=== PATIENT | female | born 1980 | race Caucasian/White ===

== ENCOUNTER 2020-09-14 13:26 | Outpatient (CLI) | payer OTHER, SELFPAY ==
--- NOTE | 2020-09-14 13:30 | ECG_ITS ---
Measurements Intervals [place] Rate: 68 P: 54 [place]: 158 QRS: 24 QRSD: 90 T: 14 QT: 393 QTc: 421 Interpretive Statements SINUS RHYTHM WITH SINUS ARRHYTHMIA INCOMPLETE RIGHT BUNDLE BRANCH BLOCK DELAYED PRECORDIAL R/S TRANSITION BORDERLINE ECG Electronically Signed On 09-14-2020 13:53:59 CDT by Vahe Waterman D.O.
[2020-09-14 14:32] LABS: Anion Gap 6 mmol/L (8-16); Blood Urea Nitrogen 17 mg/dL (7-17); Calcium 9.3 mg/dL (8.4-10.2); Carbon Dioxide 33 mmol/L (22-30); Chloride 102 mmol/L (98-107); Estimated Glomerular Filt Rate > 60; Glucose 100 mg/dL (65-105); Hemoglobin 14.3 g/dL (12.0-15.0); Potassium 4.2 mmol/L (3.4-5.0); Sodium 141 mmol/L (137-145)
== END 2020-09-14 13:27 | disposition home or self-care (01) ==
LOC: ANHSURGERY 13:34
PROVIDERS: Anesthesiology; PCP Internal Medicine; Visit Provider Surgery Plastic and Reconstructive Surgery
DX: F41.9 Anxiety disorder, unspecified (principal); N64.82 Hypoplasia of breast; Z98.890 Other specified postprocedural states; Z01.818 Encounter for other preprocedural examination; I45.10 Unspecified right bundle-branch block
CPT/HCPCS: 36415; 80048; 85014; 85018; 93005

== ENCOUNTER 2020-09-22 00:41 | Day surgery (SDC) | payer OTHER, SELFPAY ==
[2020-09-10 16:56] VITALS: BMI 26.2
[2020-09-22] VITALS (10 sets, daily range): BP systolic 104–129; BP diastolic 62–75; PULSE 63–80; RESP 10–20; TEMP 36.2–36.9; O2SAT 98–100
--- NOTE | 2020-09-22 06:45 | WPDHPUPDATE1 ---
History and Physical Update Update Date/Time: 09/22/20 06:45 History and Physical has been reviewed, including an updated exam of the patient. There are NO changes in the patient's condition. Risks, benefits, and alternatives have been discussed and questions answered. Patient agrees to proceed with procedure.
[2020-09-22] MEDS: LACTATED RINGERS 1,000 ML 30 ML IV CONT ×2 (06:46→11:51)
[2020-09-22 06:48] LABS: Urine Cotinine NEGATIVE
--- NOTE | 2020-09-22 07:06 | PM.PROC ---
Procedure Note - Detailed Date of procedure: 09/22/20 Pre-op diagnosis: Micromastia, Breast Ptosis, Skin Laxity Post-op diagnosis: same Procedure performed: 1. Augmentation mastopexy 2. Progressive tension abdominoplasty Description of procedure: She is here today for bilateral breast augmentation mastopexy and abdominoplasty. Previously and again today the risks, benefits, alternatives were discussed in extensive detail. I wanted her to be very realistic about the risks involved as well as expectations. We discussed aftercare and what to monitor for. She had previously stated that she wants a natural somewhat ptotic breast however I explained that she is doing mastopexy with implants and she will have upper pole fullness. She also states she does want upper pole fullness. Again we spent extensive time discussing realistic expectations making sure she is aware of what we can and cannot accomplish. I was very up front honest about this making sure she was well informed. e discussed DVT/PE risks and management. Made sure answered all of her questions to her satisfaction today and consent was obtained. Marked in the preoperative holding area with their verification. The patient was taken to the operating room placed supine on the operating table. Anesthesia was provided by anesthesiology. A jones catheter was started. She was prepped and draped in a standard sterile fashion. A surgical time-out was taken. A surgical time-out was taken. We cleansed the skin and 1% lidocaine and 0.25% Marcaine with epinephrine was used anesthetize as a field block. She was prepped and draped in a standard sterile fashion. Tegaderm nipple Gan were placed. A 15 blade used to make an incision above the IMF. Dissection was continued until the chest wall as identified. The lower tissue was elevated until just above the IMF. I incised the pectoralis major along its inferior border and completely released the inferior border leaving the medial border intact. I created a subpectoral pocket in the appropriate dimensions based on our preoperative planning for the implant. I then copiously irrigated with saline solution and verified a strict hemostasis. Next the use a triple antibiotic and Betadine containing solution to irrigate the pocket. I washed my gloves with the triple antibiotic and Betadine solution. We washed the implant immediately upon opening it with this solution and only opened it when we needed it. I used implant funnel and no-touch technique. The implant was introduced into the pocket using the funnel. Having verified positioning of the implant this was closed using 2-0 Vicryl. I tailor tacked the breast into position. Placed him in a sitting position. Verified my markings based on preoperative markings, intraoperative observations and measurements which were in full agreement. Placed supine. I de-epithelialized a superior pedicle. I also de-epithelialized an inferior flap to provide coverage at the T junction. I then resected a small volume of the inferior and central keel in order to get good symmetry. Elevated medial and lateral tissue flaps which were thickened well-vascularized. I copiously irrigated with saline solution. I then irrigated with a triple antibiotic Betadine solution. Closed using 2-0 Vicryl along the pillars and IMF. This is followed by 3-0 Monocryl around the nipple areola and along the vertical. 3-0 strata fix along the IMF. Final closure was running subcuticular 4-0 Monocryl and tissue glue. I placed the patient in a flexed position to verify the upper and lower markings would reach. I then placed her supine. A thorough abdominal examination was completed. Stab incisions were made and used tumescent solution. A 10 blade was used to make the upper incision. I continued dissection down to the level of fascia. Elevated just what was necessary for repair of the diastasis and discontinuous undermining otherwise. I then again f
--- NOTE | 2020-09-22 07:09 | WPDANESEPPF ---
Anes - Initial Pre Proc Eval Procedure: Operation Date: 09/22/20 07:30 Proposed Procedures p Bilateral Breast Augmentation - Maximilian Perkins MD s Bilateral Breast Mastopexy - Maximilian Perkins MD s Abdominoplasty - Maximilian Perkins MD Date/Time: 09/22/20 07:09 Surgeon: Maximilian Perkins MD Pre Op Diagnosis: Micromastia, Breast Ptosis, Skin Laxity Patient Data Age: 40 Gender: F Height: 5 ft 2 in Weight: 65 kg Allergies Allergy/AdvReac Type Severity Reaction Status Date / Time prochlorperazine Allergy racing Verified 06/29/20 14:35 [From Compazine] heart Home Medications Medication Instructions Recorded Confirmed Type famotidine 40 mg tablet 40 mg PO DAILY 08/07/19 09/10/20 History levothyroxine 88 mcg tablet 88 mcg PO DAILY 08/07/19 09/10/20 History sertraline 100 mg tablet 100 mg PO DAILY 08/07/19 09/10/20 History sertraline 50 mg tablet 50 mg PO DAILY 08/07/19 09/10/20 History spironolactone 25 mg tablet 25 mg PO BID 08/07/19 09/10/20 History carisoprodol 350 mg tablet 350 mg PO TID PRN #21 tablet 09/08/20 09/10/20 Rx ondansetron HCl 4 mg tablet 4 mg PO Q8H #28 tablet 09/08/20 09/10/20 Rx oxycodone-acetaminophen 5 mg-325 1 tablet PO Q6H PRN #15 tablet 09/08/20 09/10/20 Rx mg tablet Laboratory Tests 09/22/20 06:34 Cotinine Negative Patient hx anesthesia problems: post op nausea/vomiting Family hx anesthesia problems: none PMFSH Past Medical History Medical History Anxiety Hypothyroid Sleep apnea Surgical History Surgical History History of cholecystectomy History of foot operation History of nasal septoplasty History of oral surgery Family History Family History Mother Hypertension Father Hypertension Grandparent Hypertension Sibling Hypertension Social History Social History Smoking status: Never smoker Alcohol intake: unknown Substance use: never Living arrangements: with family Gender identity (if verbalized by the patient): Female Sexual Orientation (if Verbalized by the Patient): Straight or Heterosexual Spiritual care concerns: No Anes - Eval Final PreProcedure Day of Procedure 09/22/20 07:09 Patient weight: normal Heart: regular rate and rhythm Lungs: clear to auscultation Airway: Mallampati scale class II Neurological: alert and oriented Last oral intake: >/= 8 hours ASA classification: II Emergent: no Anesthetic plan: proceed Anesthesia type and monitoring: general ETT and standard monitoring Informed Consent: The patient's anesthetic plan and its attendant risks and benefits were discussed with the patient/family/POA. Questions were solicited and answers provided to the satisfaction of the patient/family/POA.
[2020-09-22] MEDS: SCOPOLAMINE 1.5 MG PATCH TRANSDERM (07:23)
[2020-09-22] MEDS: ceFAZolin 2 GM/D5W 50 ML 2 GM/50 ML BAG IVPB (07:27)
[2020-09-22] MEDS: LIDO 1%/EPINEPHRINE 1:100,000 50 ML VIAL 30 ML INFILTRATE (08:11)
--- NOTE | 2020-09-22 12:31 | SUR.PHASEI ---
1205; PT BEEBE WAS DC'D IN OR. CALLED DR AVILA, IF PT IS STILL SLEEPING, REPLACE BEEBE. IF AWAKE, THEN DO NOT. PT SHOULD HAVE BEEBE UNTIL THIS EVENING. [address] BEEBE, PT HAS SOME SWELLING TO LABIA/GENITAL AREA. USING STERILE TECHNIQUE. UNABLE TO PLACE BEEBE. 1220; PT STARTING TO AROUSE NOW. HOB REMAINS ELEVATED AND KNEES IN FLEXED POSITION.
[2020-09-22] MEDS: fentaNYL CITRATE INJ (*CRX) 100 MCG/2 ML VIAL 25 MCG IV PUSH ×4 (12:40→13:00)
--- NOTE | 2020-09-22 12:51 | SUR.PHASEI ---
1245; SPOKE TO JEROME HISTORICAL RECORDS ADMINISTRATOR, DR AVILA IS SCRUBBED IN. NOTIFIED THAT [address] BEEBE DUE TO PT HAVING SOME MILD SWELLING. JEROME THORNE STATES SHE WILL TELL DR AVILA 1246; JEROME THORNE CALLED, DR AVILA STATES MAY LEAVE BEEBE OUT.
--- NOTE | 2020-09-22 12:56 | SUR.PHASEI ---
PT SLEEPING. RESP EVEN UNLABORED. HOB REMAINS ELEVATED AND KNEES IN FLEXED POSITION WITH PILLOW UNDER NEATH THEM
--- NOTE | 2020-09-22 13:01 | SUR.PHASEI ---
PT STATES ONLLY HER BREASTS HURT, ABDOMEN NO PAIN.
[2020-09-22] MEDS: LACTATED RINGERS 1,000 ML 125 ML IV CONT (13:38)
--- NOTE | 2020-09-22 14:10 | OBPPTRN ---
[id number] Patient transferred to post room #289 via bed. Oriented to unit, room, information board. Patient verbalizes understanding.
[2020-09-22] MEDS: oxyCODONE/ACETAMINOPHEN (*CRX) 5-325 MG TABLET PO ×2 (15:53→17:08)
[2020-09-22] MEDS: SPIRONOLACTONE 25 MG TABLET PO (17:08)
[2020-09-22] MEDS: carisoprodoL (*CRX) 350 MG TABLET PO (17:33)
[2020-09-22] MEDS: ENOXAPARIN 40 MG/0.4 ML SYRINGE SUB-Q (17:33)
[2020-09-22] MEDS: ONDANSETRON INJ 4 MG/2 ML VIAL IV PUSH (17:40)
[2020-09-22] MEDS: DOCUSATE SODIUM 100 MG CAPSULE PO (20:22)
[2020-09-22] MEDS: SERTRALINE HCL 50 MG TABLET PO (20:22)
[2020-09-22] MEDS: MORPHINE SULFATE (*CRX) 2 MG/ML INJ IV PUSH ×2 (20:22→22:22)
[2020-09-22] MEDS: SERTRALINE HCL 50 MG TABLET 100 MG PO (20:22)
[2020-09-23] VITALS: BP 106/64; PULSE 82; RESP 16; TEMP 37.2; O2SAT 97
[2020-09-23] MEDS: carisoprodoL (*CRX) 350 MG TABLET PO ×3 (00:01→12:11)
[2020-09-23] MEDS: MORPHINE SULFATE (*CRX) 2 MG/ML INJ IV PUSH ×4 (02:56→09:35)
[2020-09-23 03:20] VITALS: BP 100/61; PULSE 74; RESP 16; TEMP 36.7; O2SAT 97
[2020-09-23] MEDS: LEVOTHYROXINE SODIUM 88 MCG TABLET PO (05:52)
[2020-09-23] MEDS: oxyCODONE/ACETAMINOPHEN (*CRX) 5-325 MG TABLET PO ×4 (05:52→12:14)
--- NOTE | 2020-09-23 07:13 | WPDPN ---
Progress Note: A&P Assessment and Plan (1) Encounter for cosmetic surgery: Code(s): Z41.1 - Encounter for cosmetic surgery Status: Acute Assessment and Plan: She is doing very well after augmentation mastopexy and abdominoplasty. Will discharge home. Follow-up. Today we had a lengthy discussion about the care. Discussed what monitor for. Discussed what is a medical emergency and went to dial 911/proceed to the emergency room. Otherwise we are available with any questions or concerns. I will see her back. Time Spent With Patient Time with patient: 25 - 35 minutes Review of Systems Review of Systems: All systems reviewed & are unremarkable except as noted in HPI and below Exam Narrative: Exam Narrative: Bilateral breasts are healing well. No signs of infection. No hematoma. No seroma. Good color and capillary refill. Abdomen is healing well. No signs of infection. No hematoma. No seroma. Good color and capillary refill. No calf tenderness. Negative Homans. Const: General: comfortable, no acute distress, alert and awake; No acute distress Orientation/consciousness: oriented to person HENMT: Head: normal to inspection Ears: external ears normal General nose exam: Normal external nose present Face and sinus: normal facial exam Eyes: General: appearance normal, both eyes and all related structures Periorbital: periorbital findings normal Eyelids: eyelids normal Conjunctivae: conjunctivae normal Neck: Neck: normal visual inspection Chest: Chest palpation & inspection: normal inspection of the chest Resp: Effort & Inspection: normal respiratory effort and able to speak in complete sentences GI: Inspection: normal to inspection Neuro: General: oriented to person Psych: Appearance: grossly normal Mental Status: mental status grossly normal Objective Data Vital Signs Vital Signs: Vital Signs - 24 hr 09/22/20 07:46 09/22/20 11:51 09/22/20 12:05 Temperature 36.3 C L 36.2 C L Pulse Rate 66 63 64 Respiratory Rate 10 L 12 Blood Pressure 129/75 108/66 113/69 Pulse Oximetry 100 100 100 09/22/20 12:20 09/22/20 12:35 09/22/20 12:50 Temperature Pulse Rate 65 67 68 Respiratory Rate 13 14 14 Blood Pressure 123/67 124/75 118/73 Pulse Oximetry 100 99 98 09/22/20 13:05 09/22/20 13:20 09/22/20 13:25 Temperature 36.9 C Pulse Rate 66 76 72 Respiratory Rate 12 20 18 Blood Pressure 119/75 120/72 114/72 Pulse Oximetry 98 100 99 09/22/20 20:00 09/23/20 00:00 09/23/20 03:20 Temperature 36.4 C 37.2 C 36.7 C Pulse Rate 80 82 74 Respiratory Rate 16 16 16 Blood Pressure 104/62 106/64 100/61 Pulse Oximetry 99 97 97 Intake/Output Intake/Output: Intake & Output 09/20/20 09/21/20 09/22/20 09/23/20 23:59 23:59 23:59 23:59 Intake Total 3070 100 Output Total 2100 200 Balance 970 -100 Meds/Results Medications: Active Medications Generic Name Dose Route Start Last Admin Trade Name Freq PRN Reason Stop Dose Admin Carisoprodol 350 mg 09/22/20 18:00 09/23/20 05:52 Carisoprodol (*Crx) 350 Mg Tablet PO 350 mg Q6HR JUNIOR Administration Docusate Sodium 100 mg 09/22/20 21:00 09/22/20 20:22 Docusate Sodium 100 Mg Capsule PO 100 mg Q12HR JUNIOR Administration Enoxaparin Sodium 40 mg 09/22/20 18:00 09/22/20 17:33 Enoxaparin 40 Mg/0.4 Ml Syringe SUB-Q 40 mg DAILY@1800 JUNIOR Administration Famotidine 40 mg 09/23/20 09:00 Famotidine 20 Mg Tablet PO DAILY JUNIOR Lactated Ringer's 1,000 mls @ 125 mls/hr 09/22/20 11:25 09/23/20 03:56 Lr - Lactated Ringers Iv IV CONT Not Given .Q8H JUNIOR Levothyroxine Sodium 88 mcg 09/23/20 06:30 09/23/20 05:52 Levothyroxine Sodium 88 Mcg Tablet PO 88 mcg DAILY@0630 JUNIOR Administration Morphine Sulfate 2 mg 09/22/20 11:25 09/23/20 04:56 Morphine Sulfate (*Crx) 2 Mg/Ml Inj IV PUSH 2 mg Q2H PRN Administration Pain Ondansetron HCl 4 mg 09/22/20 11:25 09/22/20 17:4
--- NOTE | 2020-09-23 07:16 | PM.DS ---
DS: Admitting Diagnosis Admitting Diagnosis Admitting Diagnosis: Encounter for cosmetic surgery DS: Discharge Diagnosis Discharge Diagnosis (1) Encounter for cosmetic surgery: Code(s): Z41.1 - Encounter for cosmetic surgery Status: Acute Assessment and Plan: Will discharge home. She has chosen ambulation when she gets home for DVT prophylaxis. We discussed her options. We discussed what to monitor for. What is an emergency and went dial 911/proceed to the emergency room. She will call with any questions or concerns. I will see her back. DS: Summary Hospital Course Hospital Course: She underwent augmentation mastopexy with abdominoplasty. Postoperatively she has done well. Ambulating. Tolerating diet. Will discharge home. Follow-up. Time Spent with Patient Time attestation: Total time spent providing and/or coordinating discharge services: 30 minutes Exam Narrative: Exam Narrative: Bilateral breasts are healing well. No signs of infection. No hematoma. No seroma. Good color and capillary refill. Abdomen is healing well. No signs of infection. No hematoma. No seroma. Good color and capillary refill. No calf tenderness. Negative Homans. Const: General: comfortable, no acute distress, alert and awake; No acute distress Orientation/consciousness: oriented to person HENMT: Head: normal to inspection Ears: external ears normal General nose exam: Normal external nose present Face and sinus: normal facial exam Eyes: General: appearance normal, both eyes and all related structures Periorbital: periorbital findings normal Eyelids: eyelids normal Conjunctivae: conjunctivae normal Neck: Neck: normal visual inspection Chest: Chest palpation & inspection: normal inspection of the chest Resp: Effort & Inspection: normal respiratory effort and able to speak in complete sentences GI: Inspection: normal to inspection Neuro: General: oriented to person Psych: Appearance: grossly normal Mental Status: mental status grossly normal Discharge Plan Discharge Patient Disposition: Home, Self-Care Discharge Instructions: POST OPERATIVE DISCHARGE INSTRUCTIONS FOR: Breast Augmentation / Mastopexy / Abdominoplasty MANDY PERKINS M.D. [facility] [address] [facility] [address] [place] [address] [address] for 24 hours after anesthesia and while you are taking pain medication. Take all prescribed medication as directed Diet as tolerated. Begin gentle shoulder rolls and arm stretches 10 times per hour. No lifting or activity that raises blood pressure for 48 hours. Regular walking / ambulation. No showering until directed to. No pools or tubs for 2 weeks. No straining or lifting over 20 pounds for 6 weeks. Slowly stand up straight as tolerated over the week. Call with any questions or concerns. If you have surgery Monday through : Keep dressings dry and intact and keep bra on. We will remove the bra and all dressings at your next day follow-up. You may shower after your follow up appointment at Dr. Perkins's office. Do not take pain medication before showering as the combination of medication and heat may cause you to feel dizzy or pass out. Let soap and water run over your incisions. Do not scrub or directly wash your incision. Replace the surgical bra and wear it 23 hours per day. If you have surgery on Monday After 24 hours you may remove the dressings and bra. At this point my may shower. Do not take pain medication before showering as the combination of medication and heat may cause you to feel dizzy or pass out. Let soap and water run over your incisions. Do not scrub or directly wash your incision. Replace the surgical bra and wear it 23 hours per day. If you have any questions or concerns, please call the office . If it is after hours you will be directed to the hot pond operator exchange. Shortness of breath, ch
[2020-09-23 07:25] VITALS: BP 99/61; PULSE 76; RESP 18; TEMP 37.4; O2SAT 97
[2020-09-23 07:30] VITALS: PULSE 76; RESP 18; O2SAT 97
[2020-09-23] MEDS: DOCUSATE SODIUM 100 MG CAPSULE PO (07:51)
[2020-09-23] MEDS: FAMOTIDINE 20 MG TABLET 40 MG PO (07:51)
[2020-09-23] MEDS: ONDANSETRON INJ 4 MG/2 ML VIAL IV PUSH ×2 (07:51→13:21)
--- NOTE | 2020-09-23 08:11 | WPDANESPN ---
Anes - Prog Note Post-Op Date/Time: 09/23/20 08:11 Cardiovascular status: normal Respiratory status: normal Airway patency: baseline Mental status: baseline Post-Op hydration status: normal Vital Signs: Last Vital Signs Temp 36.7 C 09/23/20 03:20 Pulse 74 09/23/20 03:20 Resp 16 09/23/20 03:20 BP 100/61 09/23/20 03:20 Pulse Ox 97 09/23/20 03:20 Pain Score (VAS): 6/10. Patient resting in bed at time of assessment. Patient described nausea with relief with PRN meds. Some relief from pain with PRN medications. RN aware of patient pain scale following bedside post op assessment. I/O: Intake & Output 09/22/20 09/23/20 09/23/20 23:59 07:59 15:59 Intake Total 2870 100 Output Total 2100 200 Balance 770 -100 Post-procedural complaints: nausea (patient states relief with PRN meds. ) Patient Feedback: Patient satisfied with anesthetic care.
--- NOTE | 2020-09-23 16:23 | PC.NURSE ---
[address] Deleon's office regarding pt complaints of pain not being well controlled despite taking all available medication and that she wasn't hungry for breakfast and despite encouragement to eat took pain meds on an empty stomach and now feels nauseous and is requesting that I call Dr. Deleon to request to stay the night and go home tomorrow. Dr. Deleon agreed, however wants patient to be clear that this extension of stay will not be covered by insurance and will be an out of pocket expense. when this was explained to patient she decided to continue with discharge plan of going home this evening.
== END 2020-09-23 17:15 | disposition home or self-care (01) ==
LOC: ANHSURGERY 07:15 → ANHOB2 13:48
PROVIDERS: PCP Internal Medicine; Visit Provider Surgery Plastic and Reconstructive Surgery
PROC: (CPT 19325; principal; 2020-09-22 07:30)
PROC: (CPT 19316; 2020-09-22 07:30)
PROC: (CPT 19325; 2020-09-22 07:30)
DX: Z41.1 Encounter for cosmetic surgery (principal); N64.82 Hypoplasia of breast; L57.4 Cutis laxa senilis; E03.9 Hypothyroidism, unspecified; G47.30 Sleep apnea, unspecified; F41.9 Anxiety disorder, unspecified; Z79.899 Other long term (current) drug therapy
CPT/HCPCS: 19325; 19316; 15830; 15847; 80307; 99199; A9270; C9290; J0171; J0690; J1100; J1170; J1580; J1650; J2250; J2270; J2405; J2704; J3010; J7030; J7120